=== PATIENT | female | born 1965 | race African-American/Black ===

== ENCOUNTER 2025-02-03 15:27 | Emergency (ER) | payer MEDICARE, SELFPAY ==
--- OUTSIDE RECORDS SUMMARY | 2024-02-05 04:15 | XMS_ITS ---
Author Organization [facility] Address [address] [place] [address] [place] [address] Care Team Providers Care One Piece Expansion Maker Hand Name Role Phone FELIPE RUFF, TASH Primary Care Provider Timmy Reyes Unavailable [phone] ALLERGIES Allergen (clinical drug ingredient) Drug/Non Drug Allergy documented on EMR Reaction Allergy Type Onset Date Status Information temporarily unavailable Latex rash Allergy Active Information temporarily unavailable Tramadol nausea and vomiting Drug Allergy Active REASON FOR VISIT Right > Left Low Back Pain, Bilateral Lower Extremity Pain MEDICATIONS Medication SIG (Take, Route, Frequency, Duration) Notes Start Date End Date Status Pregabalin 75 MG TAKE 1 CAPSULE BY MOUTH TWICE DAILY Oral for 90 Active Vitamin D (Ergocalciferol) 1.25 MG (73976 UT) TAKE 1 CAPSULE BY MOUTH ONCE A WEEK Oral for 84 Active Fluticasone Propionate 50 MCG/ACT Nasal for 90 Active FLUoxetine HCl 10 MG Oral for 90 Active Xanax 0.25 MG 1-2 tablets Orally 3 0 minutes prior to injection 01/31/2024 Active Allergy Relief 180 MG TAKE 1 TABLET BY M OUTH ONCE DAILY NEEDED FOR ALLERGIES Oral for 90 Active Albuterol Sulfate HFA 108 (9 0 Base) MCG/ACT Inhalation for 50 Active Diclofenac Sodium 75 MG Oral for 45 Active Ozempic (2 MG/DOSE) 8 MG/3ML INJECT 2MG UNDER THE SKIN DIRECTED ONCE A WEEK. Subcutaneous for 28 Active Gabapentin 600 MG 1 capsule Oral Once a day Active Methocarbamol 750 MG TAKE 1 TABLET BY MO UTH THREE TIMES DAILY NEEDED FOR PAIN Oral for 20 Active Rosuvastatin Calcium 20 MG Oral for 90 Active Metoprolol Tartrate 50 MG TAKE 1 TABLET BY MOUTH TWICE DAILY Oral for 90 Active Losartan Potassium 25 MG Oral for 90 Active glipiZIDE 5 MG 1 tablet 30 minutes before breakfast Oral Once a day Active Atorvastatin Calcium 10 MG 1 tablet Oral ly Once a day for 30 day(s) Active Voltaren 1 % apply 4 grams to painful joint(s) Transdermal 4x/day as needed for pain for 30 days Active Medrol 4 MG as directed Orally 07/12/2021 Active traMADol HCl 100 MG Oral for 10 Active Metoprolol Succinate 25 MG 1 capsule Orally BID Active amLODIPine Besylate 5 MG 1 tablet Orally Once a day for 30 day(s) Active Xanax 0.5 MG 1 tablet Orally Twic e a day Active hydroCHLOROthiazide 50 MG 1 tablet in th e morning Orally Once a day for 30 day(s) Active VITAL SIGNS Blood pressure systolic 143 mm Hg 02/05/20 24 Blood pressure diastolic 91 mm Hg 024 Heart Rate 67 /min 02/05/2024 Respiratory Rate 18 /min 02/05/2024 Height 5 ft 5 in in 02/05/2024 Weight 315 lbs 02/05/2024 BMI 52.41 kg/m2 02/05/2024 Oximetry 99 % 02/05/2024 Post procedure bslkgw=189/91 ,60,18,99%. Discharged home per ambulatory, in no acute distress. Encounters Encounter Location Date Provider Diagnosis [address] [address] 02/05/2024 Timmy Salgado Spondylosis without myelopathy or radiculopathy, lumbar region M47.816 and Spondylosis without myelopathy or radiculopathy, lumbosacral region M47.817 ASSESSMENTS Encounter Date Diagnosis Assessment Notes Treatment Notes Treatment Clinical Notes Section Notes 02/05/2024 Spondylosis without myelopathy or radiculopathy, lumbar region (ICD-10 - M47.816) 02/05/2024 Spondylosis without myelopathy or radiculopathy, lumbosacral region (ICD-10 - M47.817) 02/05/2024 Other The patient voiced understanding of the treatment plan and all questions were addressed. Obtain informed consent: Bilateral Lumbar 3-5 Radiofrequency Ablation under fluoroscopy. Monitor pulse, blood pressure and SaO2 before, after and as needed during procedure. Verify if the patient is currently taking blood thinner. Verify patients is not currently on antibiotics for infection. Patient may drive home. CARE PLAN: Knowledge deficit: Will verbalize understanding of the proposed procedure, including risk of electrical burn, complications and benefits of the procedure? Will the patient exhibit understanding of the discharge instructions? Safety: The potential for injury related to surgery was assessed; Fire risk score determined, test completed if applicable. Risk for injury related to wrong patient, site, procedure. TIME OUT for safety of patient and includes patient name, , procedure site, side, level, allergies, blood thinners, antibiotics, surgical counts, consents correct and signed etc. Risk for infection: Implements aseptic technique, protects from cross-contaminatio n, performs skin preparations. Pain/Discomfort: Patient verbalizes acceptable level of pain relief prior to discharge and the ability to engage in desired activity. I HAVE REVIEWED THE PATIENT'S MEDICATION LIST AND HAVE RECONCILED THE ABOVE MEDICATIONS. PATIENT GOALS AND SAFETY CONCERNS HAVE BEEN ADDRESSED. DARRYN MOSELEY PLAN OF TREATMENT Treatment Notes Assessment Notes Other The patient voiced understanding of the treatment plan and all questions were addressed. Obtain informed consent: Bilateral Lumbar 3-5 Radiofrequency Ablation under fluoroscopy. Monitor pulse, blood pressure and SaO2 before, after and as needed during procedure. Verify if the patient is currently taking blood thinner. Verify patients is not currently on antibiotics for infection. Patient may drive home. CARE PLAN: Knowledge deficit: Will verbalize understanding of the proposed procedure, including risk of electrical burn, complications and benefits of the procedure? Will the patient exhibit understanding of the discharge instructions? Safety: The potential for injury related to surgery was assessed; Fire risk score determined, test completed if applicable. Risk for injury related to wrong patient, site, procedure. TIME OUT for safety of patient and includes patient name, , procedure site, side, level, allergies, blood thinners, antibiotics, surgical counts, consents correct and signed etc. Risk for infection: Implements aseptic technique, protects from cross-contamination, performs skin preparations. Pain/Discomfort: Patient verbalizes acceptable level of pain relief prior to discharge and the ability to engage in desired activity. I HAVE REVIEWED THE PATIENT'S MEDICATION LIST AND HAVE RECONCILED THE ABOVE MEDICATIONS. PATIENT GOALS AND SAFETY CONCERNS HAVE BEEN ADDRESSED. DARRYN MOSELEY Next Appt Details Follow Up: FU scheduled on , Reason: Procedure Notes * Category Sub-Category Detail Notes Radiofrequency Ablation Procedure: L3-5 Med ial Branch Nerve Radiofrequency Ablation Location: Bilateral Anesthesia: Local without IV sed ation Operative Technique: After the risks, be nefits, alternative treatment options and potential complications related to the procedure were discussed, informed consent was obtained. The specific risks of this procedure including pain, bleeding, infection, nerve damage, spinal cord injury, paralysis, total spinal anesthesia resulting in cardiopulmonary arrest/, respiratory distress requiring intubation, neuritis after radiofrequency ablation, hyperglycemia, insomnia, hair loss, muscle atrophy, skin depigmentation, weight gain, fluid retention, adrenal suppression, osteoporosis resulting in fractures, avascular necrosis of the hip, cataracts, bleeding gastric ulcer, worsening pain and failure to relieve pain were discussed and the patient is agreeable to proceeding at this time. The patient was placed in the prone position on the fluoroscopy table. Standard ASA monitors were applied. The back was prepped and draped in the usual sterile fashion with chlorhexidine 2%/IPA 70%. The bilateral L4 pedicles were identified with x-ray and the c-arm was obliqued 45 degrees to the selected side superimposing the L4 pedicle on the L4 vertebral body. The skin and subcutaneous structures above it were anesthetized with 3 mL of 1% Preservative-Free lidocaine through a 25 g 1.5-inch needle. A 20-gauge coude 15 cm radiofrequency needle with a 10 mm active tip was inserted in a gun barrel fashion to the junction of the superior articular process and transverse process of L4 until periosteum was contacted. The bilateral L3 medial branch nerves were stimulated with negative motor stimulation at 2 Hz up to 3.0 V. A solution of 10 mg of Preservative-Free Dexamethasone (10 mg/mL), plus 5 mL of 1% Preservative-Free lidocaine was mixed. After negative aspiration for blood, air or CSF, 1 mL of this solution was injected. The bilateral L3 medial branch nerves were lesioned at 80 degrees Celsius for 90 seconds. The exact same procedure was repeated at the bilateral L4 medial branch nerves (at the junction of the superior articular process and transverse process of L5) and the bilateral L5 dorsal rami (at the junction of the superior articular process of S1 and the sacral ala) with no motor stimulation into the lower extremity at 2 Hz up to 3.0 V. The needles were then removed, the skin was cleaned and band-aids were placed over the puncture sites. The patient tolerated the procedure well, was able to ambulate without difficulty and was monitored for 20 minutes. The patient remained hemodynamically and neurologically stable. No complications were observed. Postoperative instructions were reviewed with the patient. The patient was discharged home in good condition with a driver engineer. X- ray time: 57 seconds Safe Surgery Practices First Critical Point Maria ent identified by verbal and ID band. Surgical site marked. Assessement of allergies, airway and aspiration risk. Assessed if patient is on anticoagulant. Operataive Consent signed. Patient has discussed procedure with physician Carleen Ochoa 02/05/2024 9:27:04 AM > Second Critical Point TIME OUT: Confirm patient identity, procedure and surgical incision site. Patient in proper position and safety straps placed appropriately. ASA score: 2 Fire Risk Score: 2 . Alcohol based prep solution had significant time for fumes to dissipate. Confirm surgical steam table attendant and roles. Anticipated critical events. Essential imaging displayed as appropriate. Fluoroscopy precautions taken if applicable. Equipment and supplies in room. Verify patient is not if applicable Carleen Ochoa 02/05/2024 9:27:04 AM > Third Critical Point SAFE SURGERY PRACTI GLENDY-POST: Complete count of surgical instruments and accessories. Identify samaniego patient concerns for recovery and management of the patient. Patient remains free from injury realted to surgery. The patient tolerated the procedure well and there were no complications. The patient was taken to the recovery area. The patient remained in stable condition with no apparent complications. Vital signs stable. Injection/procedure/surgical site clean, dry and intact. Post procedure discharge instructions were give to the patient and a follow up appointment was confirmed. The patient was discharged with information on how to reach the clinic at anytime for questions or concerns. Patient discharged ambulatory. Patient denies complaints or questions Carleen Ochoa 02/05/2024 10:17:04 AM > Progress Notes * Examination Category Sub-Category Detail Notes Category Not es Examination/ Pre-Anesthesia Assessment General: The patient is alert and oriented X 3 in no acute distress. The patient is sitting comfortably in her chair despite reporting she is currently experiencing severe pain HEENT: Normocephalic, atrau matic. PERRL. The oropharynx is clear Neck: There is full range of motion of the cervical spine. There is no tenderness to palpation about the cervical spine. Extension and lateral rotation of the cervical spine causes mild discomfort. Spurling sign is negative bilaterally Heart: Regular rate and rhy thm Chest: Clear to auscultatio n bilaterally Abdomen: Soft and benign Musculoskeletal and Extremities: There i s tenderness to palpation over the bilateral L2-3 through L5-S1 facet joints. Extension and lateral rotation of the lumbar spine reproduces the patient's typical axial low back pain. Guille's, [place]'s and [place]ens[place]'s are negative bilaterally. There is tenderness palpation over the bilateral sacroiliac joints and greater trochanters. There is tenderness to palpation over the bilateral lumbar paraspinal muscles and palpable myofascial trigger points throughout. There is diffuse tenderness to palpation about the bilateral knee joints. There is crepitus with range of motion testing Neurological: There is positive st raight leg raising bilaterally for the reproduction of the pain down the L4 and L5 dermatomes right greater than left. Spurling sign is negative bilaterally. There are no focal strength deficits in the bilateral upper and lower extremities. The patellar reflexes are 1+/4 bilaterally and symmetric. There is a negative Tinel's at the bilateral carpal tunnel. There are no deficits in light touch perception over the distribution of the median nerve in the bilateral hands Skin: Clean, dry and intac t Psychiatric: Mood and affect are normal History and Physical Notes * HPI (History of Present Illness) Category Sub-Category Detail Notes Category Not es Pain Management Radiographic Imaging Lumbar spin e MRI without contrast. 07/28/2020. L1-2: Bilateral facet arthropathy causing mild bilateral neuroforaminal stenosis. L2-3: Bilateral facet arthropathy causing mild bilateral neuroforaminal stenosis. L3-4: A broad-based disc bulge, L3 on L4 anterolisthesis and bilateral facet arthropathy causing mild central canal stenosis, mild to moderate right and mild left neuroforaminal stenosis. L4-L5: A broad-based disc bulge with right paracentral disc extrusion. Disc bulge/extrusion, anterolisthesis L4 on L5 and bilateral facet arthropathy causing mild to moderate central canal stenosis, moderate bilateral neuroforaminal stenosis. L5-S1: A broad-based disc bulge and bilateral facet arthropathy. Moderate to severe right and moderate left neuroforaminal stenosis. The disc bulge is touching the exiting right L5 nerve root within the neural foramen Assessment and Follow-up: Follow-up Plan documen manjula:: Yes MIPS Quality 2020: MIPS Documented:: Compliant
--- OUTSIDE RECORDS SUMMARY | 2024-02-06 03:14 | XMS_ITS ---
Author Organization [facility] Address [address] [place] [address] [place] [address] Care Team Providers Care Ultrasonographer Name Role Phone FELIPE RUFF, TASH Primary Care Provider UnavailTimmy Castrejon Unavailable [phone] REASON FOR VISIT Post Procedure Follow Up Call Encounters Encounter Location Date Provider Diagnosis [facility] [address] [place] [address] 02/06/2024 Timmy Salgado PLAN OF TREATMENT No Information
--- OUTSIDE RECORDS SUMMARY | 2024-02-28 08:15 | XMS_ITS ---
Author Organization [facility] Address [address] [place] [address] [place] [address] Care Team Providers Care Storekeeper Engineering Name Role Phone FELIPE RUFF, TASH Primary Care Provider Timmy Reyes Unavailable [phone] ALLERGIES Allergen (clinical drug ingredient) Drug/Non Drug Allergy documented on EMR Reaction Allergy Type Onset Date Status Information temporarily unavailable Latex rash Allergy Active Information temporarily unavailable Tramadol nausea and vomiting Drug Allergy Active REASON FOR VISIT Follow Up, Right > Left Low Back Pain, Right = Left Lower Extremity Pain, Left > Right Knee Pain, Right > left neck pain with radiation into the upper extremities MEDICATIONS Medication SIG (Take, Route, Frequency, Duration) Notes Start Date End Date Status traMADol HCl 100 MG Oral for 10 Active Metoprolol Tartrate 50 MG TAKE 1 TABLET BY MOUTH TWICE DAILY Oral for 90 Active Losartan Potassium 25 MG Oral for 90 Active Methocarbamol 750 MG TAKE 1 TABLET BY [facility] THREE TIMES DAILY NEEDED FOR PAIN Oral for 20 Active Rosuvastatin Calcium 20 MG Oral for 90 Active Metoprolol Succinate 25 MG 1 capsule Orally BID Active Atorvastatin Calcium 10 MG 1 tablet Oral ly Once a day for 30 day(s) Active hydroCHLOROthiazide 50 MG 1 tablet in th e morning Orally Once a day for 30 day(s) Active Voltaren 1 % apply 4 grams to painful joint(s) Transdermal 4x/day as needed for pain for 30 days Active Medrol 4 MG as directed Orally 07/12/2021 Active Xanax 0.5 MG 1 tablet Orally Twic e a day Active FLUoxetine HCl 10 MG Oral for 90 Active amLODIPine Besylate 5 MG 1 tablet Orally Once a day for 30 day(s) Active Xanax 0.25 MG 1-2 tablets Orally 3 0 minutes prior to injection 01/31/2024 Active Fluticasone Propionate 50 MCG/ACT Nasal for 90 Active Allergy Relief 180 MG TAKE 1 TABLET BY M OUTH ONCE DAILY NEEDED FOR ALLERGIES Oral for 90 Active Diclofenac Sodium 75 MG Oral for 45 Active Pregabalin 75 MG TAKE 1 CAPSULE BY MOUTH TWICE DAILY Oral for 90 Active Albuterol Sulfate HFA 108 (9 0 Base) MCG/ACT Inhalation for 50 Active Vitamin D (Ergocalciferol) 1.25 MG (30393 UT) TAKE 1 CAPSULE BY MOUTH ONCE A WEEK Oral for 84 Active Gabapentin 600 MG 1 capsule Oral Once a day Active glipiZIDE 5 MG 1 tablet 30 minutes before breakfast Oral Once a day Active Ozempic (2 MG/DOSE) 8 MG/3ML INJECT 2MG UNDER THE SKIN DIRECTED ONCE A WEEK. Subcutaneous for 28 Active SOCIAL HISTORY Tobacco Use: Social History Observation Description Date Details (start date - stop date) Current Smoker NA - NA Sex Assigned At : Social History Observation Description Sex Assigned At Unknown Tobacco Use/Smoking Question Answer Notes Are you a current smoker How often do you smoke cigarettes? every day Are you interested in quitting? 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 She has four children. She smokes cigarettes. She denies alcohol or illicit drug abuse. PROBLEMS Problem Type ICD Code Onset Dates Problem Status W/U Status Risk SNOMED Code Notes Problem Radiculopathy, cervicothoracic region (M54.13) Active confirmed Information temporarily unavailable VITAL SIGNS Blood pressure systolic 155 mm Hg 02/28/20 Blood pressure diastolic 102 mm Hg 024 Heart Rate 63 /min 02/28/2024 Respiratory Rate 18 /min 02/28/2024 Height 5 ft 5 in in 02/28/2024 Weight 315 lbs 02/28/2024 BMI 52.41 kg/m2 02/28/2024 Encounters Encounter Location Date Provider Diagnosis [facility] [address] [facility] [place] [address] 02/28/2024 Timmy Salgado Spondylosis without myelopathy or radiculopathy, lumbar region M47.816 ; Bilateral primary osteoarthritis of knee M17.0 ; Radiculopathy, lumbar region M54.16 ; Spondylolisthesis, lumbar region M43.16 ; 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 The risks of this procedure including pain, bleeding, infection, nerve damage, insomnia, hyperglycemia, hair loss, muscle atrophy, skin depigmentation, weight gain, fluid retention, adrenal suppression, immunosuppression , osteoporosis resulting in fractures, avascular necrosis of the hip, cataracts, bleeding gastric ulcer, worsening pain and failure to relieve pain were discussed and the patient is agreeable to proceeding at this time. 02/28/2024 Radiculopathy, lumbar region (ICD-10 - M54.16) 02/28/2024 Spondylolisthesis, lumbar region (ICD-10 - M43.16) 02/28/2024 Intervertebral disc stenosis of neural canal of lumbar region (ICD-10 - M99.53) 02/28/2024 Osseous stenosis of neural canal of lumbar region (ICD-10 - M99.33) 02/28/2024 Spondylosis without myelopathy or radiculopathy, lumbosacral region (ICD-10 - M47.817) 02/28/2024 Fear of injections and transfusions (ICD-10 - F40.231) 02/28/2024 Radiculopathy, cervical region (ICD-10 - M54.12) The patient was instructed to notify the office after imaging has been obtained so it can be reviewed and treatment plan formulated moving forward. Patient verbalized understanding and agrees with current plan. 02/28/2024 Radiculopathy, cervicothoracic region (ICD-10 - M54.13) 02/28/2024 Other The above-named patient was evaluated in conjunction with Dr. Salgado. I have discussed and reviewed all of the pertinent history, physical examination findings and diagnostic imaging results with him. As a result of our discussion, Dr. Salgado has determined the above assessment and directed the treatment plan. This note was dictated using voice recognition software and therefore inadvertent errors may have occurred. This note was dictated by LIZZY Grullon. Total Time Spent with Patient and Medical Decision Makin minutes PLAN OF TREATMENT Treatment Notes Assessment Notes Bilateral primary osteoarthritis of knee Schedule a bilateral knee joint steroid injection. The risks of this procedure including pain, bleeding, infection, nerve damage, insomnia, hyperglycemia, hair loss, muscle atrophy, skin depigmentation, weight gain, fluid retention, adrenal suppression, immunosuppression, osteoporosis resulting in fractures, avascular necrosis of the hip, cataracts, bleeding gastric ulcer, worsening pain and failure to relieve pain were discussed and the patient is agreeable to proceeding at this time. Radiculopathy, cervical region The patie nt was instructed to notify the office after imaging has been obtained so it can be reviewed and treatment plan formulated moving forward. Patient verbalized understanding and agrees with current plan. Other The above-named patient was evaluated in conjunction with Dr. Salgado. I have discussed and reviewed all of the pertinent history, physical examination findings and diagnostic imaging results with him. As a result of our discussion, Dr. Salgado has determined the above assessment and directed the treatment plan. This note was dictated using voice recognition software and therefore inadvertent errors may have occurred. This note was dictated by LIZZY Grullon. Total Time Spent with Patient and Medical Decision Makin minutes Pending Test Test Name Order Date MRI : Cervical Spine without Contrast ([id number]) 02/28/2024 xray cervical spine 02/28/2024 Next Appt Details Follow Up: bilateral knee jean int steroid injection, Reason: Progress Notes * Examination Category Sub-Category Detail [...] patient's typical axial low back pain. Guille's, [place]'s and Gaenslen's are negative bilaterally. There is [...]
--- OUTSIDE RECORDS SUMMARY | 2024-03-04 06:15 | XMS_ITS ---
Author Organization [facility] Address [address] [place] [address] DAV[place] Cortez [address] Care Team Providers Care Counter Clerk [employer] Name Role Phone FELIPE RUFF, TASH Primary Care Provider Timmy Reyes Unavailable [phone] ALLERGIES Allergen (clinical drug ingredient) Drug/Non Drug Allergy documented on EMR Reaction Allergy Type Onset Date Status Information temporarily unavailable Latex rash Allergy Active Information temporarily unavailable Tramadol nausea and vomiting Drug Allergy Active REASON FOR VISIT Left > Right Knee Pain MEDICATIONS Medication SIG (Take, Route, Frequency, Duration) Notes Start Date End Date Status Metoprolol Succinate 25 MG 1 capsule Orally BID Active amLODIPine Besylate 5 MG 1 tablet Orally Once a day for 30 day(s) Active Xanax 0.5 MG 1 tablet Orally Twic e a day Active hydroCHLOROthiazide 50 MG 1 tablet in th e morning Orally Once a day for 30 day(s) Active Atorvastatin Calcium 10 MG 1 tablet Oral ly Once a day for 30 day(s) Active FLUoxetine HCl 10 MG Oral for 90 Active Xanax 0.25 MG 1-2 tablets Orally 3 0 minutes prior to injection 01/31/2024 Active Pregabalin 75 MG TAKE 1 CAPSULE BY MOUTH TWICE DAILY Oral for 90 Active Vitamin D (Ergocalciferol) 1.25 MG (48309 UT) TAKE 1 CAPSULE BY MOUTH ONCE A WEEK Oral for 84 Active Fluticasone Propionate 50 MCG/ACT Nasal for 90 Active Ozempic (2 MG/DOSE) 8 MG/3ML INJECT 2MG UNDER THE SKIN DIRECTED ONCE A WEEK. Subcutaneous for 28 Active Diclofenac Sodium 75 MG Oral for 45 Active Gabapentin 600 MG 1 capsule Oral Once a day Active Allergy Relief 180 MG TAKE 1 TABLET BY M OUTH ONCE DAILY NEEDED FOR ALLERGIES Oral for 90 Active Albuterol Sulfate HFA 108 (9 0 Base) MCG/ACT Inhalation for 50 Active Metoprolol Tartrate 50 MG TAKE 1 TABLET BY MOUTH TWICE DAILY Oral for 90 Active Losartan Potassium 25 MG Oral for 90 Active glipiZIDE 5 MG 1 tablet 30 minutes before breakfast Oral Once a day Active Methocarbamol 750 MG TAKE 1 TABLET BY [facility] THREE TIMES DAILY NEEDED FOR PAIN Oral for 20 Active Rosuvastatin Calcium 20 MG Oral for 90 Active Medrol 4 MG as directed Orally 07/12/2021 Active traMADol HCl 100 MG Oral for 10 Active Voltaren 1 % apply 4 grams to painful joint(s) Transdermal 4x/day as needed for pain for 30 days Active VITAL SIGNS Blood pressure systolic 151 mm Hg 03/04/20 Blood pressure diastolic 82 mm Hg 024 Heart Rate 83 /min 03/04/2024 Respiratory Rate 18 /min 03/04/2024 Height 5 ft 5 in in 03/04/2024 Weight 315 lbs 03/04/2024 BMI 52.41 kg/m2 03/04/2024 Encounters Encounter Location Date Provider Diagnosis [facility] [address] [place] [id number] 03/04/2024 Timmy Salgado Bilateral primary osteoarthritis of knee M17.0 ASSESSMENTS Encounter Date Diagnosis Assessment Notes Treatment Notes Treatment Clinical Notes Section Notes 03/04/2024 Bilateral primary osteoarthritis of knee (ICD-10 - M17.0) PLAN OF TREATMENT Next Appt Details Follow Up: Has f/u 03/19/24, Reason: Procedure Notes * Category Sub-Category Detail Notes Knee Joint Injection Under Fluoroscopy Location: Bilateral Anesthesia: Local without IV sed ation Operative Technique: After the risks, be nefits, alternative treatments and potential complications related to the procedure were discussed and informed consent was obtained, the patient was placed in the supine position on the fluoroscopy table. Standard ASA monitors were applied. The anterior surface of the left and right knees were prepped and draped in the usual sterile fashion with chlorhexidine 2%/IPA 70%. The tibial and femoral surfaces of the knee joints were identified under live AP x-ray guidance. A 25-gauge 1.5 inch needle was inserted in a gun barrel fashion under fluoroscopic guidance into the left knee joint followed by the right knee joint. The subcutaneous structures were anesthetized with 3 mL of 1% lidocaine during needle placement. The needle tip was placed into the joint. After negative aspiration, 2 mL of Omnipaque 240 contrast dye was injected showing good spread within the joint. There were no filling defects. Contrast spread normally without obstruction. A solution of 10 mg of Preservative-Free Dexamethasone (10 mg/mL), plus 7 mL of 0.25% PF bupivacaine was mixed and after negative aspiration 4 mL of this solution was injected into the left knee joint followed by the right knee joint. The needles were removed, the skin was cleaned and band-aids were placed over the puncture sites. The patient tolerated the procedure well, was able to ambulate without new difficulty and was monitored for 20 minutes. The patient remained hemodynamically and neurologically stable. No apparent complications were observed. Post-operative instructions were reviewed with the patient. The patient was then discharged home in good condition with a tilt tray driver. X-ray time: 18 seconds Progress Notes * Examination Category Sub-Category Detail [...] patient's typical axial low back pain. Guille's, Lincoln's and Gaenslen's are negative bilaterally. There is [...]
--- OUTSIDE RECORDS SUMMARY | 2024-03-19 08:30 | XMS_ITS ---
Author Organization [facility] Address [address] [place] [address] [place] [address] Care Team Providers Care External Grinder [employer] Name Role Phone FELIPE RUFF, TASH Primary Care Provider Unavaila Timmy Leary Unavailable [phone] ALLERGIES Allergen (clinical drug ingredient) Drug/Non Drug Allergy documented on EMR Reaction Allergy Type Onset Date Status Information temporarily unavailable Latex rash Allergy Active Information temporarily unavailable Tramadol nausea and vomiting Drug Allergy Active REASON FOR VISIT FOLLOW UP MEDICATIONS Medication SIG (Take, Route, Frequency, Duration) Notes Start Date End Date Status Albuterol Sulfate HFA 108 (9 0 Base) MCG/ACT Inhalation for 50 Active Vitamin D (Ergocalciferol) 1.25 MG (51619 UT) TAKE 1 CAPSULE BY MOUTH ONCE A WEEK Oral for 84 Active Pregabalin 75 MG TAKE 1 CAPSULE BY MOUTH TWICE DAILY Oral for 90 Active Diclofenac Sodium 75 MG Oral for 45 Active Fluticasone Propionate 50 MCG/ACT Nasal for 90 Active Allergy Relief 180 MG TAKE 1 TABLET BY M OUTH ONCE DAILY NEEDED FOR ALLERGIES Oral for 90 Active Gabapentin 600 MG 1 capsule Oral Once a day Active Ozempic (2 MG/DOSE) 8 MG/3ML INJECT 2MG UNDER THE SKIN DIRECTED ONCE A WEEK. Subcutaneous for 28 Active glipiZIDE 5 MG 1 tablet 30 minutes before breakfast Oral Once a day Active Losartan Potassium 25 MG Oral for 90 Active Rosuvastatin Calcium 20 MG Oral for 90 Active Methocarbamol 750 MG TAKE 1 TABLET BY MO UTH THREE TIMES DAILY NEEDED FOR PAIN Oral for 20 Active traMADol HCl 100 MG Oral for 10 Active Medrol 4 MG as directed Orally 07/12/2021 Active Metoprolol Tartrate 50 MG TAKE 1 TABLET BY MOUTH TWICE DAILY Oral for 90 Active Voltaren 1 % apply 4 grams to painful joint(s) Transdermal 4x/day as needed for pain for 30 days Active Atorvastatin Calcium 10 MG 1 tablet Oral ly Once a day for 30 day(s) Active Metoprolol Succinate 25 MG 1 capsule Orally BID Active hydroCHLOROthiazide 50 MG 1 tablet in th e morning Orally Once a day for 30 day(s) Active Xanax 0.5 MG 1 tablet Orally Twic e a day Active amLODIPine Besylate 5 MG 1 tablet Orally Once a day for 30 day(s) Active Xanax 0.25 MG 1-2 tablets Orally 3 0 minutes prior to injection 01/31/2024 Active FLUoxetine HCl 10 MG Oral for 90 Active SOCIAL HISTORY Tobacco Use: Social History [...] t Section Notes: 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 She smokes cigarettes. She denies alcohol or illicit drug abuse. 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 Guille's, [place]'s and Gaenslen's are negative bilaterally. There is [...]
--- NOTE | ~2025-02-03 | XR_ITS ---
EXAMINATION: XR chest 2V, 02/03/2025 15:50 CDT HISTORY: chest pressure COMPARISON: No comparisons available. Technique: 2 views obtained. Findings: Minimal basilar infiltrates No pneumothorax. Heart is normal size. Mediastinal and hilar contours are within normal limits. Bony thorax no acute abnormality. Impression: Early bilateral pneumonia Reviewed, dictated and finalized at location P. Impression: Early bilateral pneumonia
--- NOTE | 2025-02-03 15:29 | ECG_ITS ---
Test Date: 2025-02-03 15:37:01 Measurements Intervals [place] Rate: 59 P: -4 OR: 152 QRS: 7 QRSD: 89 T: -5 QT: 434 QTc: 431 Interpretive Statements SINUS BRADYCARDIA MINIMAL VOLTAGE CRITERIA FOR LVH, CONSIDER NORMAL VARIANT [MEETS CRITERIA IN ONE OF: R(aVL), S(V1), R(V5), R(V5/V6)+S(V1)] Poor R wave progression No previous ECG available for comparison Electronically Signed On 02-03-2025 16:58:25 CDT by Eric Mauricio M.D.
[2025-02-03 15:30] VITALS: BP 111/69; PULSE 61; RESP 18; TEMP 36.9; O2SAT 97
[2025-02-03 15:46] LABS: Hematocrit 40.8 % (37.0-47.0); Hemoglobin 13.8 g/dL (12.0-15.0); Immature Granulocyte Percent A 0.4 % (0-0.5); Lymphocytes Absolute Auto 3.42 K/mm3 (0.9-3.2); Mean Corpuscular HGB Conc 33.8 g/dl (32-36); Mean Corpuscular Hemoglobin 32.7 pg (26-34); Mean Corpuscular Volume 96.7 fl (80-100); Nucleated Red Blood Cells Absolute Auto 0.000 K/mm3 (0.0-0.012); Nucleated Red Blood Cells Perc 0.0 % (0.0-0.2); Platelet Count Result 267 k/mm3 (150-375); Red Blood Count 4.22 M/mm3 (4.2-5.4); White Blood Count 11.2 K/mm3 (4.5-10.0)
[2025-02-03 15:55] LABS: INR 1.0; Partial Thromboplastin Time 28.0 Seconds (22.3-36.8); Prothrombin Time 13.4 Seconds (11.1-14.7)
[2025-02-03 15:56] LABS: Alanine Aminotransferase 27 U/L (6-35); Albumin Level 4.4 g/dL (3.5-5.1); Alkaline Phosphatase 78 U/L (38-126); Anion Gap 5 mmol/L (4-12); Aspartate Amino Transferase 31 U/L (14-36); Bilirubin,Total 0.4 mg/dL (0.2-1.3); Blood Urea Nitrogen 13 mg/dL (7-17); Calcium 8.9 mg/dL (8.4-10.2); Carbon Dioxide 28 mmol/L (22-30); Chloride 106 mmol/L (98-107); Estimated CRCL calculation 101 ml/min; Estimated Glomerular Filt Rate > 60; Glucose 84 mg/dL (65-110); Lipase 55 U/L (23-300); Potassium 3.7 mmol/L (3.4-5.0); Sodium 139 mmol/L (137-145); Total Protein 7.4 g/dL (6.3-8.2)
[2025-02-03 16:07] LABS: Troponin I < 0.012 ng/mL (0.000-0.034)
[2025-02-03 18:19] VITALS: O2SAT 99
[2025-02-03 18:21] VITALS: BP 188/82; PULSE 63; PULSE 65; RESP 19; O2SAT 100
--- NOTE | 2025-02-03 18:42 | ED_ITS ---
HPI - Chest Pain General Chief Complaint: Chest Pain Stated Complaint: weakness, chest pressure Time Seen by Provider: 02/03/25 18:13 History of Present Illness HPI narrative: This is a 59-year-old female with history of hypertension, neuropathy, GERD who presents the ED for chest pain a cough, shortness of breath. Patient states that she woke up this morning a cough productive of brown sputum. She also had some shortness of breath. She did not try using the inhaler that she has at home. Daughter at bedside states the patient does have history of COPD but patient denies this. Patient is a current smoker he was cut back to 6 cigarettes per day. Related Data Allergies Allergy/AdvReac Type Severity Reaction Status Date / Time No Known Allergies Allergy Verified 02/03/25 18:29 Review of Systems 2 Review of Systems: Gen.: Denies fevers or chills Eyes: Denies eye pain or visual change ENT: Denies congestion Respiratory: As per HPI CV: As per HPI GI: Denies abdominal pain nausea, emesis or diarrhea denies burning, urgency, frequency or hematuria Musculoskeletal: Denies back pain or muscle pain Neuro: Denies numbness, tingling, weakness or focal weakness Skin: Denies rash Except as documented, all other systems reviewed and negative Exam 2 Narrative: APPEARANCE: No acute distress, nontoxic, resting in bed EYES: EOMI HEENT: Normocephalic, atraumatic, OMM RESPIRATORY: No respiratory distress. Diminished breath sounds due to body habitus, Clear to auscultation bilaterally with no rhonchi wheezing or rales. CARDIOVASCULAR: Regular rate and rhythm without murmurs rubs or gallops. ABDOMINAL: Soft, nontender, nondistended, no rebound or guarding MUSCULOSKELETAl: Moves all extremities. No clubbing, cyanosis or edema. NEURO: Awake and alert. Following commands, speech normal, no focal deficits SKIN:: Warm, dry. No rashes lesions or abrasions PSYCHIATRIC: Normal affect/mood, Course Vital Signs Vital signs: Vital Signs Temperature 98.4 F 02/03/25 15:30 Pulse Rate 61 02/03/25 15:30 Respiratory Rate 18 02/03/25 15:30 Blood Pressure 111/69 02/03/25 15:30 Pulse Oximetry 97 02/03/25 15:30 Oxygen Delivery Room Air 02/03/25 15:30 Temperature 98.4 F 02/03/25 15:30 Pulse Rate 65 02/03/25 18:21 Respiratory Rate 19 02/03/25 18:21 Blood Pressure 188/82 H 02/03/25 18:21 Pulse Oximetry 100 02/03/25 18:21 Oxygen Delivery Room Air 02/03/25 18:19 MDM - Chest Pain MDM Narrative Medical decision making narrative: 59-year-old female presenting for chest pain, shortness breath, productive cough. On initial evaluation, patient was in no acute distress, afebrile, hemodynamically stable. She did have diminished breath sounds throughout but may be due to body habitus. She had a mild leukocytosis at 11.2. CMP without significant abnormalities. COVID/flu/RSV negative. Chest x-ray showed early bilateral pneumonia which is likely the source of her chest pain. Patient is a current everyday smoker she likely has underlying COPD as well. She will be given Augmentin and doxycycline prednisone. She was advised follow-up with her PCP in the next few days for re-evaluation. Patient and family were agreeable to this plan. Given strict return precautions. Differential Diagnosis Differential diagnosis: Likely stable angina, unstable angina pectoris, atypical chest pain, costochondritis and other (Pneumonia, COPD exacerbation) Medical Records Data Attestation: I reviewed the patient's medical records. Lab Data Attestation: I reviewed the patient's lab results. 02/03/25 15:35 02/03/25 15:35 Labs: Lab Results 02/03/25 02/03/25 02/03/25 Range/Units 15:34 15:35 18:27 WBC 11.2 H (4.5-10.0) K/mm3 RBC 4.22 (4.2-5.4) M/mm3 Hgb 13.8 (12.0-15.0) g/dL Hct 40.8 (37.0-47.0) % MCV 96.7 (80-100) fl MCH 32.7 (26-34) pg MCHC 33.8 (32-36) g/dl RDW 15.2 H (11.5-14.5) % Plt Count 267 (150-375) k/mm3 MPV 10.5 H (7.4-10.4) fl Immature Gran % (Auto) 0.4 (0-0.5) % Neut % (Auto) 60.5 (45.5-73.1) % Lymph % (Auto) 30.6 (18.3-44.2) % [place] % (Auto) 6.4 (2.6-8.5) % Eos % (Auto) 1.7 (0-4.4) % Baso % (Auto) 0.4 (0.2-1.2) % Lymph # (Auto) 3.42 H (0.9-3.2) K/mm3 [place] # (Auto) 0.7 H (0.1-0.6) K/mm3 Eos # (Auto) 0.2 (0-0.3) K/mm3 Baso # (Auto) 0.1 (0.0-0.1) K/mm3 Abs Immat Gran (auto) 0.05 H (0.00-0.031) K/mm3 Absolute Neuts (auto) 6.7 (1.3-6.7) K/mm3 Absolute Nucleated RBC 0.000 (0.0-0.012) K/mm3 Nucleated RBC % 0.0 (0.0-0.2) % PT 13.4 (11.1-14.7) Seconds INR 1.0 APTT 28.0 (22.3-36.8) Seconds Sodium 139 (137-145) mmol/L Potassium 3.7 (3.4-5.0) mmol/L Chloride 106 (98-107) mmol/L Carbon Dioxide 28 (22-30) mmol/L Anion Gap 5 (4-12) mmol/L BUN 13 (7-17) mg/dL Creatinine 0.66 L (0.7-1.0) mg/dL Estim Creat Clear Calc 101 ml/min Estimated GFR > 60 (59 - ) Glucose 84 (65-110) mg/dL Calcium 8.9 (8.4-10.2) mg/dL Total Bilirubin 0.4 (0.2-1.3) mg/dL AST 31 (14-36) U/L ALT 27 (6-35) U/L Alkaline Phosphatase 78 (38-126) U/L Troponin I < 0.012 < 0.012 (0.000-0.034) ng/mL NT-Pro-B Natriuret Pep 120 H (19.9-100) pg/mL Total Protein 7.4 (6.3-8.2) g/dL Albumin 4.4 (3.5-5.1) g/dL Lipase 55 (23-300) U/L Influenza A (RT-PCR) Negative (Negative) Influenza B (RT-PCR) Negative (Negative) RSV (RT-PCR) Negative (Negative) SARS-CoV-2 RNA (RT-PCR) Negative (Negative) Imaging Data Attestation: I personally reviewed and interpreted this imaging study as follows: Radiologist's impression: Impressions Chest X-Ray 02/03/25 16:01 Impression: Early bilateral pneumonia ECG Data EKG #1: Attestation: I personally reviewed and interpreted this ECG as follows: ECG completion date: 02/03/25 ECG completion time: 15:37 Prior ECG tracings: available for review Interpretation: Sinus bradycardia rate of 59, normal axis, normal intervals, meets minimal voltage criteria for LVH, no acute ST or T-wave changes Discharge Plan Discharge Clinical Impression: Asthma exacerbation in COPD, Tobacco dependence due to cigarettes Bilateral pneumonia Qualifiers: Pneumonia type: due to unspecified organism Lung location: lower lobe of lung Q ualified Code(s): J18.9 - Pneumonia, unspecified organism Patient Disposition: Home Condition: Stable Instructions: Antibiotic Form, Pneumonia (ED) Additional Instructions: X-ray was consistent with bilateral pneumonia. He will be given prescriptions for Augmentin/doxycycline, take these as prescribed. You are also given a prescription for prednisone. Continue taking breathing treatments at home as previously prescribed. Follow up with her PCP in the next week for re- evaluation. Return to the ED for any new or worsening symptoms. Patient Language: Trinidadian Prescriptions: New amoxicillin-pot clavulanate 875-125 mg tablet 1 tablet PO Q12H Qty: 14 0RF doxycycline hyclate 100 mg capsule 100 mg PO BID Qty: 14 0RF prednisone 20 mg tablet 40 mg PO DAILY 4 Days Qty: 8 0RF Follow-up/Referrals: Natali,Susy Ortiz, WILLOW MACHINE OPERATOR [Primary Care Provider, Unknown]
--- OUTSIDE RECORDS SUMMARY | 2025-02-03 18:52 | XMS_ITS | Patient Health Record ---
Author Organization [facility] Address [address] [place] [address] [place] [address] Care Team Providers Care Triage Nurse Name Role Phone FELIPE RUFF, TASH Primary Care Provider Timmy Reyes Unavailable [phone] ALLERGIES Allergen (clinical drug ingredient) Drug/Non Drug Allergy documented on EMR Reaction Allergy Type Onset Date Status Latex Latex rash Allergy Active tramadol Tramadol nausea and vomiting Drug Allergy Active REASON FOR REFERRAL No Information MEDICATIONS Medication SIG (Take, Route, Frequency, Duration) Notes Start Date End Date Status Xanax 0.5 MG 1 tablet Orally Twic e a day Active glipiZIDE 5 MG 1 tablet 30 minutes before breakfast Oral Once a day Active amLODIPine Besylate 5 MG 1 tablet Orally Once a day for 30 day(s) Active Losartan Potassium 25 MG Oral for 90 Active Xanax 0.25 MG 1-2 tablets Orally 3 0 minutes prior to injection 01/31/2024 Active Metoprolol Tartrate 50 MG TAKE 1 TABLET BY MOUTH TWICE DAILY Oral for 90 Active FLUoxetine HCl 10 MG Oral for 90 Active Fluticasone Propionate 50 MCG/ACT Nasal for 90 Active Voltaren 1 % apply 4 grams to painful joint(s) Transdermal 4x/day as needed for pain for 30 days Active Albuterol Sulfate HFA 108 (9 0 Base) MCG/ACT Inhalation for 50 Active Atorvastatin Calcium 10 MG 1 tablet Oral ly Once a day for 30 day(s) Active Allergy Relief 180 MG TAKE 1 TABLET BY M OUTH ONCE DAILY NEEDED FOR ALLERGIES Oral for 90 Active Metoprolol Succinate 25 MG 1 capsule Orally BID Active Gabapentin 600 MG 1 capsule Oral Once a day Active hydroCHLOROthiazide 50 MG 1 tablet in e morning Orally Once a day for 30 day(s) Active Ozempic (2 MG/DOSE) 8 MG/3ML INJECT 2MG UNDER THE SKIN DIRECTED ONCE A WEEK. Subcutaneous for 28 Active Rosuvastatin Calcium 20 MG Oral for 90 Active Methocarbamol 750 MG TAKE 1 TABLET BY MO UTH THREE TIMES DAILY NEEDED FOR PAIN Oral for 20 Active Vitamin D (Ergocalciferol) 1.25 MG (37787 UT) TAKE 1 CAPSULE BY MOUTH ONCE A WEEK Oral for 84 Active traMADol HCl 100 MG Oral for 10 Active Pregabalin 75 MG TAKE 1 CAPSULE BY MOUTH TWICE DAILY Oral for 90 Active Medrol 4 MG as directed Orally 07/12/2021 Active Diclofenac Sodium 75 MG Oral for 45 Active SOCIAL HISTORY Tobacco Use: Social History Observation Description Date Details (start date - stop date) Current Smoker NA - NA Sex Assigned At : Social History Observation Description Sex Assigned At Unknown Tobacco Use/Smoking Question Answer Notes Are you a current smoker How often do you smoke cigarettes? every day Are you interested in quitting? 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 She has smoked cigarettes the last five years. She denies alcohol or illicit drug abuse. 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 She has smoked cigarettes the last five years. She denies alcohol or illicit drug abuse. 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 She has smoked cigarettes the last five years. She denies alcohol or illicit drug abuse. 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 She has smoked cigarettes the last five years. She denies alcohol or illicit drug abuse. 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 She has smoked cigarettes the last five years. She denies alcohol or illicit drug abuse. 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 She has smoked cigarettes the last five years. She denies alcohol or illicit drug abuse. 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 She has smoked cigarettes the last five years. She denies alcohol or illicit drug abuse. 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 She has smoked cigarettes the last five years. She denies alcohol or illicit drug abuse. 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 She has smoked cigarettes the last five years. She denies alcohol or illicit drug abuse. 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 She has smoked cigarettes the last five years. She denies alcohol or illicit drug abuse. 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 She has smoked cigarettes the last five years. She denies alcohol or illicit drug abuse. 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 She has smoked cigarettes the last five years. She denies alcohol or illicit drug abuse. 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 She has smoked cigarettes the last five years. She denies alcohol or illicit drug abuse. 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 She has smoked cigarettes the last five years. She denies alcohol or illicit drug abuse. 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 She has smoked cigarettes the last five years. She denies alcohol or illicit drug abuse. 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 She has smoked cigarettes the last five years. She denies alcohol or illicit drug abuse. 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 She has smoked cigarettes the last five years. She denies alcohol or illicit drug abuse. 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 She has smoked cigarettes the last five years. She denies alcohol or illicit drug abuse. 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 She has smoked cigarettes the last five years. She denies alcohol or illicit drug abuse. 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 She has smoked cigarettes the last five years. She denies alcohol or illicit drug abuse. 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 She has smoked cigarettes the last five years. She denies alcohol or illicit drug abuse. 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 She has smoked cigarettes the last five years. She denies alcohol or illicit drug abuse. 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 She has smoked cigarettes the last five years. She denies alcohol or illicit drug abuse. 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 She has smoked cigarettes the last five years. She denies alcohol or illicit drug abuse. 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 She has smoked cigarettes the last five years. She denies alcohol or illicit drug abuse. 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 She has smoked cigarettes the last five years. She denies alcohol or illicit drug abuse. 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 She has smoked cigarettes the last five years. She denies alcohol or illicit drug abuse. 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 She has smoked cigarettes the last five years. She denies alcohol or illicit drug abuse. 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 She has smoked cigarettes the last five years. She denies alcohol or illicit drug abuse. 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 She has smoked cigarettes the last five years. She denies alcohol or illicit drug abuse. 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 She has smoked cigarettes the last five years. She denies alcohol or illicit drug abuse. 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 She has smoked cigarettes the last five years. She denies alcohol or illicit drug abuse. 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 She has smoked cigarettes the last five years. She denies alcohol or illicit drug abuse. 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 She has smoked cigarettes the last five years. She denies alcohol or illicit drug abuse. 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 She has smoked cigarettes the last five years. She denies alcohol or illicit drug abuse. 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 She has smoked cigarettes the last five years. She denies alcohol or illicit drug abuse. 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 She smokes cigarettes. She denies alcohol or illicit drug abuse. 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 She smokes cigarettes. She denies alcohol or illicit drug abuse. 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 She smokes cigarettes. She denies alcohol or illicit drug abuse. 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 She smokes cigarettes. She denies alcohol or illicit drug abuse. 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 She smokes cigarettes. She denies alcohol or illicit drug abuse. PROBLEMS Problem Type ICD Code Onset Dates Problem Status W/U Status Risk SNOMED Code Notes Problem Morbid (severe) obesity due to excess calories (E66.01) Active confirmed Morbid obesity (disorder) (902159643) Problem Fear of injections and transfusions (F40.231) Active confirmed Fear of medical treatment (330109538) Problem Bilateral primary osteoarthritis of knee (M17.0) Active confirmed Osteoarthritis of knee (076677345) Problem Unspecified osteoarthritis, unspecified site (M19.90) Active confirmed Osteoarthritis (373136792) Problem Pain in unspecified wrist (M25.539) Active confirmed Pain in wrist (41393894) Problem Pain in unspecified knee (M25.569) Active confirmed Pain of knee re gion (finding) (7164058266) Problem Spondylolisthesis, lumbar region (M43.16) Active confirmed Acquired spondylolisthesis (277263104) Problem Spondylosis without myelopathy or radiculopathy, lumbar region (M47.816) Active confirmed Lumbosacral spondylosis without myelopathy (03341884) Problem Spondylosis without myelopathy or radiculopathy, lumbosacral region (M47.817) Active confirmed Lumbosacral spondylosis without myelopathy (disorder) (84087956) Problem Spinal stenosis, cervical region (M48.02) Active confirmed Spinal stenosis in cervical region (85746010) Problem Intervertebral disc disorders with radiculopathy, lumbar region (M51.16) Active confirmed Radiculopathy d ue to lumbar intervertebral disc disorder (656400295061653) Problem Other intervertebral disc degeneration, lumbar region (M51.36) Active confirmed Degeneration of lumbar intervertebral disc (92115676) Problem Radiculopathy, cervical region (M54.12) Active confirmed Cervical radiculopathy (01617781) Problem Radiculopathy, cervicothoracic region (M54.13) Active confirmed Cervical radiculopathy (14061637) Problem Radiculopathy, lumbar region (M54.16) Active confirmed Lumbar radiculopathy (246546710) Problem Osseous stenosis of neural canal of lumbar region (M99.33) Active confirmed Spinal stenosis of lumbar region (95994618) Problem Osseous stenosis of neural canal of lower extremity (M99.36) Active confirmed Problem Intervertebral disc stenosis of neural canal of lumbar region (M99.53) Active confirmed Spinal stenosis of lumbar region (72411224) Problem Osseous and subluxation stenosis of intervertebral foramina of lumbar region (M99.63) Active confirmed Spinal steno sis of lumbar region (14682099) Problem halfway (current) use of opiate analgesic (Z79.891) Active confirmed High risk drug monitoring status (344478680) Problem Carpal tunnel syndrome, bilateral upper limbs (G56.03) Active confirmed Carpal tunnel syndrome (91809197) VITAL SIGNS Heart Rate 83 /min 03/04/2024 Respiratory Rate 18 /min 03/04/2024 Blood pressure diastolic 82 mm Hg 03/04/2024 Oximetry 99 % 02/05/2024 Post procedure wfidgg=032/91,60,18,99%. Discharged home per ambulatory, in no acute distress. Height 5 ft 5 in in 03/04/2024 Blood pressure systolic 151 mm Hg 03/04/2024 Weight 315 lbs 03/04/2024 BMI 52.41 kg/m2 03/04/2024 Encounters Encounter Location Date Provider Diagnosis [address] [place] [address] 02/05/2024 Timmy Salgado Spondylosis without myelopathy or radiculopathy, lumbar region M47.816 and Spondylosis without myelopathy or radiculopathy, lumbosacral region M47.817 [facility] [place] [address] [facility] [place] [address] 02/06/2024 Timmy Salgado [facility] [address] [place] [address] [place] [address] 02/28/2024 Timmy Salgado Spondylosis without myelopathy or [...] region M54.12 and Radiculopathy, cervicothoracic region M54.13 [facility] [address] [place] [address] 03/04/2024 Timmy Salgado Bilateral primary osteoarthritis of knee M17.0 [facility] [address] [place] [address] 03/19/2024 Timmy Salgado Spondylosis without myelopathy or [...] Notes Treatment Clinical Notes Section Notes 02/28/2024 Bilateral primary osteoarthritis of knee (ICD-10 [...] agreeable to proceeding at this time. 02/28/2024 Spondylosis without myelopathy or radiculopathy, lumbar region (ICD-10 - M47.816) 02/05/2024 Spondylosis without myelopathy or radiculopathy, lumbar region (ICD-10 - M47.816) 02/05/2024 Spondylosis without myelopathy or radiculopathy, lumbosacral region (ICD-10 - M47.817) 03/04/2024 Bilateral primary osteoarthritis of knee (ICD-10 - M17.0) 03/19/2024 Spondylosis without myelopathy or radiculopathy, lumbar region (ICD-10 - M47.816) 02/28/2024 Radiculopathy, lumbar region (ICD-10 - M54.16) 03/19/2024 Bilateral primary osteoarthritis of knee (ICD-10 - M17.0) 02/28/2024 Spondylolisthesis, lumbar region (ICD-10 - M43.16) 03/19/2024 Radiculopathy, lumbar region (ICD-10 - M54.16) 02/28/2024 Intervertebral disc stenosis of neural canal of lumbar region (ICD-10 - M99.53) 03/19/2024 Spondylolisthesis, lumbar region (ICD-10 - M43.16) 03/19/2024 Intervertebral disc stenosis of neural canal of lumbar region (ICD-10 - M99.53) 02/28/2024 Osseous stenosis of neural canal of lumbar region (ICD-10 - M99.33) 02/28/2024 Spondylosis without myelopathy or radiculopathy, lumbosacral region (ICD-10 - M47.817) 03/19/2024 Osseous stenosis of neural canal of lumbar region (ICD-10 - M99.33) 02/28/2024 Fear of injections and transfusions (ICD-10 - F40.231) 03/19/2024 Spondylosis without myelopathy or radiculopathy, lumbosacral region (ICD-10 - M47.817) 02/28/2024 Radiculopathy, cervical region (ICD-10 - M54.12) The patient was instructed to notify the office after imaging has been obtained so it can be reviewed and treatment plan formulated moving forward. Patient verbalized understanding and agrees with current plan. 03/19/2024 Fear of injections and transfusions (ICD-10 - F40.231) 02/28/2024 Radiculopathy, cervicothoracic region (ICD-10 - M54.13) 03/19/2024 Radiculopathy, cervical region (ICD-10 - M54.12) 03/19/2024 Radiculopathy, cervicothoracic region (ICD-10 - M54.13) 02/05/2024 Other The patient voiced understanding of [...] for infection: Implements aseptic technique, protects from cross-contaminati on, performs skin preparations. Pain/Discomfort: Patient verbalizes acceptable level of pain relief prior to discharge and the ability to engage in desired activity. I HAVE REVIEWED THE PATIENT'S MEDICATION LIST AND HAVE RECONCILED THE ABOVE MEDICATIONS. PATIENT GOALS AND SAFETY CONCERNS HAVE BEEN ADDRESSED. RN initials PRADIP 02/28/2024 Other The above-named patient was evaluated [...] Medical Decision Makin minutes PLAN OF TREATMENT Pending Test Test Name Order Date X ray : Knees, bilateral, A-P standing 0 07/27/2020 MRI : Cervical Spine without Contrast (7 [id number]) 02/28/2024 MRI : Lumbar Spine without contrast (721 48) 07/23/2020 xray cervical spine 02/28/2024 Insurance Providers Payer Name Payer Address Payer Phone Subscriber Number Group Number Insured Name Patient Relationship to Insured Coverage Start Date Coverage End Date [employer] MEDICARE COMPLETE [address] [address] [place] [address] [id number] BALBINA MULTANI Self - patient is the insured Medicaid [place] [address] [place] [address] [id number] BALBINA MULTANI Self - patient is the insured MEDICAL (GENERAL) HISTORY Medical History History ICD Code Congestive heart failure COVID-19 Anxiety Hypertension Depression Sleep apnea Surgical History Surgery Date(Month/Year)
--- OUTSIDE RECORDS SUMMARY | 2025-02-03 18:53 | XMS_ITS | Clinical Summary ---
Author Organization [facility] Address [address] [place] [address] Care Team Providers Care Structural Mill Supervisor Name Role Phone Paulie Ha MD Unavailable [phone] Non-Staff, Provider Primary Care Provider Michael moore Allergies Active Allergy Reactions Criticality Noted Date Comments Ashwin Inhibitors Cough 11/18/2018 Latex Rash Low 04/05/2020 Rubber gloves with power in them give her a rash on her hands. Says area of her body that touch elastic turn red, Says under her breast where bra touches turns red and she has to constantly put neosporin on there. Tape Rash Low 04/05/2020 Use paper tape. Also says she bruises easily when IV started. Tramadol Itching,Nausea and Vomiting Low 10/27/2019 Itching Other reaction(s): nausea and vomiting Medications diclofenac EC 75 MG tablet Take 1 tablet (75 mg total) by mouth 2 (two) times daily. PRN w/ food 20 tablet 9 Active tiZANidine (ZANAFLEX) 2 MG tablet 4 Active traMADol HCl 100 MG Tab TAKE 1 TABLET BY MOUTH DAILY NEEDED FOR SEVERE PAIN 4 Active rosuvastatin (CRESTOR) 20 MG tablet Take 1 tablet (20 mg total) by mouth daily. Active pregabalin (LYRICA) 75 MG capsule TAKE 1 CAPSULE BY MOUTH TWICE DAILY Oral for 90 4 Active metoprolol tartrate (LOPRESSOR) 50 MG tablet Take 1 tablet (50 mg total) by mouth 2 (two) times daily. Active methocarbamol (ROBAXIN) 750 MG Tab Take 1 tablet (750 mg total) by mouth 3 (three) times daily as needed. FOR PAIN Active meloxicam (MOBIC) 15 MG tablet Take 1 tablet (15 mg total) by mouth daily. Active losartan (COZAAR) 25 MG tablet Oral for 90 Active lidocaine (XYLOCAINE) 5 % ointment APPLY SMALL AMOUNT TOPICALLY TO THE AFFECTED AREA TWICE DAILY NEEDED FOR PAIN 4 Active ipratropium-al buterol (DUONEB) 0.5-2.5 (3) MG/3ML Solution ipratropium 0.5 mg-albuterol 3 mg (2.5 mg base)/3 mL nebulization soln Active hydroCHLOROthi azide (HYDRODIURIL) 50 MG tablet daily. Active fexofenadine (GUY) 180 MG tablet TAKE 1 TABLET BY MOUTH ONCE DAILY NEEDED FOR ALLERGIES Oral for 90 Active famotidine (PEPCID) 20 MG tablet 4 Active erythromycin (ROMYCIN) 5 MG/GM (0.5%) ophthalmic ointment APPLY THIN LAYER IN LEFT EYE THREE TIMES DAILY Active amLODIPine (NORVASC) 5 MG tablet Take 1 tablet (5 mg total) by mouth daily. Active FLUoxetine (PROZAC) 10 MG capsule Oral for 90 Active methylPREDNISo RONAK jacobo (MEDROL DOSEPAK) 4 MG tabletIndicati ons:Carpal tunnel syndrome on right,Carpal tunnel syndrome on left Take 1 tablet (4 mg total) by mouth see administration instructions. Follow package taper directions 1 each 5 Active albuterol sulfate HFA 108 (90 Base) MCG/ACT inhaler Inhale 2 puffs into the lungs 4 (four) times daily. 18 g 5 Active Active Problems No known active problems Encounters Date Type Department Care Team Description 12/19/2024 8:13 PM CDT - 12/19/2024 10:14 PM CDT Emergency [facility] [place] [address] Janet Boss, CARPENTRY SPECIALIST Flu Like Symptoms Discharge Disposition: Home or Self Care (Routine Discharge) 12/19/2024 Travel from Last 3 Months Family History Medical History Relation Comments Asthma Brother Diabetes Brother Hypertension Brother Stroke Brother 2 brothers had a stroke Cancer Father prostate cancer. Hypertension Father Diabetes Mother Hypertension Mother Diabetes Sister Hypertension Sister Stroke Son 1 Relation Status Comments Brother Other Daughter Alive Father (Age 98) after his , Mother (Age 78) of brain aneurysm Sister Other patient is young est sibling Son 1 Alive Son 2 Alive Son 3 Alive Social History Tobacco Use Types Packs/Day Years Used Date Smoking Tobacco: Some Days Cigarettes 1 25 Smokeless Tobacco: Never Tobacco Cessation:Ready to Q uit: Yes; Counseling Given: Yes Comments:now down to 1/2 ppd (8 cigarettes a day), as of 04/20/2020 is trying to quit Alcohol Use Standard Drinks/Week Comments No 0 (1 standard drink = 0.6 oz pur e alcohol) AUDIT-C Answer Date Recorded Frequency of Alcohol Consumption Never 11/18/2018 Average Number of Drinks Not on file 019 Frequency of Binge Drinking Not on file 11/04 PHQ-2 Answer Date Recorded Patient Health Questionnaire-2 Score 0 05/08/2024 Comments No Sex and Gender Information Value Date Recorded Sex Assigned at Not on file Legal Sex Female 6:36 PM CDT Gender Identity Not on file Sexual Orientation Not on file Last Filed Vital Signs Vital Sign Reading Time Taken Comments Blood Pressure 151/87 12/19/2024 10:07 PM CDT Pulse 71 12/19/2024 10:07 PM CDT Temperature 36.7 C (98.1 F) 12/19/2024 8:12 PM CDT Respiratory Rate 18 12/19/2024 8:12 PM CDT Oxygen Saturation 98% 12/19/2024 10:07 PM CDT Inhaled Oxygen Concentration - - Weight 138.8 kg (306 lb) 12/19/2024 8:12 PM CDT Height 165.1 cm (5' 5) 12/19/2024 8:12 PM CDT Body Mass Index 50.92 12/19/2024 8:12 PM CDT Plan of Treatment Health Maintenance Due Date Last Done Comments Cervical Cancer Screening Pa p Smear (Age 30 to 64) Every 3 Years 1963 Colorectal Cancer Screening Colonoscopy (10 Years) 1963 Annual Physical 09/08/1966 Hepatitis C 09/08/1981 Pneumococcal Vaccine: 50+ Years (1 of 2 - PCV) 09/08/1982 Cervical Cancer Screening Pa p with HPV Testing (Age 30 to 64) Every 5 Years 09/08/1993 Cervical Cancer Screening wi th HPV 09/08/1993 Zoster Vaccines (1 of 2) 09/08/2013 Lung Cancer Screening 11/19/2022 11/19/2021 , 07/10/2019, 11/06/2016 RSV Immunization or 60+ Years (1 - Risk 60-74 years 1-dose series) 2023 COVID-19 Vaccine (3 - 2024-2 6 season) 2025 03/24/2022, 10/13/2021 Mammogram Screening 05/22/2025 05/22/2023 DTaP, Tdap and Td Vaccines ( 2 - Td or Tdap) 12/21/2031 12/20/2021 PHQ-2 (Physician [place]) Completed 05/08/2024 Meningococcal B Vaccine Aged Out No l onger eligible based on patient's age to complete this topic Meningococcal Vaccine Aged Out No mable yvonne eligible based on patient's age to complete this topic RSV Immunizations Under 20 Months Aged Out No longer eligible b ased on patient's age to complete this topic Procedures Procedure Name Priority Date/Time Associated Diagnosis Comments XR CHEST PORTABLE STAT 12/19/2024 8:2 7 PM CDT INFLUENZA A & B STAT 12/19/2024 8:23 PM CDT CORONAVIRUS (COVID 19) STAT 12/19/2024 8:23 PM CDT from Last 3 Months Results * XR CHEST PORTABLE (12/19/2024 8:27 PM CDT) Anatomical Region Laterality Modality Chest Radiographic Gloria ging 12/19/2024 8:37 PM CDT Impressions 12/19/2024 8:40 PM CDT Impression: No acute findings. Referred By: Interpreted By: Philip Johnson MD, 12/19/2024 8:37 PM Narrative 12/19/2024 8:40 PM CDT [address] [address] Examination: Chest 1 view portable History: Cough, shortness of breath DATE/TIME: 12/19/2024 8:16 PM Comparison: 03/14/2024 Technique: AP upright portable view of the chest was obtained. Findings: Heart size, mediastinal contours and pulmonary vasculature are within normal limits. No pulmonary consolidation, pleural effusion or pneumothorax. No acute osseous abnormality. Procedure Note Philip Johnson MD - 12/19/2024 [place] [address] Examination: Chest 1 view portable History: Cough, shortness of breath DATE/TIME: 12/19/2024 8:16 PM Comparison: 03/14/2024 Technique: AP upright portable view of the chest was obtained. Findings: Heart size, mediastinal contours and pulmonary vasculature arewithin normal limits. No pulmonary consolidation, pleural effusion orpneumothorax. No acute osseous abnormality. Impression: No acute findings. Referred By: Interpreted By: Philip Johnson MD, 12/19/2024 8:37 PM Janet Boss CARPENTRY SPECIALIST GENERAL IMAGING Final Resul t * CORONAVIRUS (COVID 19) (12/19/2024 8:23 PM CDT) CORONAVIRUS SARS COV 2 RNA NEGATIVE NEGATIVE 12/19/2024 9:52 PM CDT [facility] Comment: NEGATIVE RESULTS DO NOT RULE OUT COVID 19 AND SHOULD NOT BE USED THE SOLE BASIS FOR TREATMENT OR PATIENT MANAGEMENT DECISIONS, INCLUDING INFECTION CONTROL DECISIONS. NEGATIVE RESULTS SHOULD BE CONSIDERED IN THE CONTEXT OF A PATIENT'S RECENT EXPOSURES, HISTORY AND THE PRESENCE OF CLINICAL SIGNS AND SYMPTOMS CONSISTENT WITH COVID 19. THE ID NOW COVID-19 2.0 TEST HAS BEEN AUTHORIZED BY THE FDA UNDER EAU FOR USE BY AUTHORIZED LABORATORIES. PERFORMED BY NUCLEIC ACID AMPLIFICATION FOR MOLECULAR QUALITATIVE DETECTION OF SARS-COV-2. SPECIMEN TYPE NASAL 12/19/2024 8:23 PM CDT [facility] NASAL STRUCTURE / Unknown 12/19/2024 8:23 PM CDT Janet oBss [facility] MICROBIOLOGY [facility]AL [facility] Final Result Performing Organization Address City/[facility]/ZIP Co de Phone Number [facility] [address] [place] [id number], [place] [phone] * INFLUENZA A & B (12/19/2024 8:23 PM CDT) SPECIMEN TYPE NASAL 12/19/2024 8:26 PM CDT [facility] INFLUENZA A NEGATIVE NEGATIVE 12/19/2024 9:52 PM CDT [facility] INFLUENZA B NEGATIVE NEGATIVE 12/19/2024 9:52 PM CDT [facility] Comment: Interpretation: Negative for Influenza A and B. A negative result does not exclude influenza virus infection. If influenza is circulating in your community, a diagnosis of influenza should be considered based on a patient's clinical presentation and empiric antiviral treatment should be considered, if indicated. If more conclusive testing is needed for hospitalized inpatients, follow-up confirmatory testing with RT-PCR requires a separate order. NASOPHARYNGEAL SWAB / Unknown 12/19/2024 8:23 PM CDT Janet Boss [facility] MICROBIOLOGY - GENERAL [facility] Final Result Performing Organization Address City/[facility]/ZIP Co de Phone Number [facility] [address] [place] [id number], [place] [phone] from Last 3 Months Insurance [facility] MEDIC[facility] Advance Directives Documents on File Type Date Recorded Patient [employer] Expl anation Legal Documents 02/20/2014 SLEGAL Care Teams Structural Mill Supervisor Relationship Specialty Start Date End Date Non-Staff, Provider PCP - General UNKNOWN PHYSICIAN SPECIALTY 08/31/23 Paulie Ha MD CARDIOVASCULAR DISEASE 04/05/20
[2025-02-03 19:00] LABS: Troponin I < 0.012 ng/mL (0.000-0.034)
[2025-02-03 19:14] LABS: Influenza A QL RT-PCR Negative (Negative); Influenza B QL RT-PCR Negative (Negative); RSV RNA, RT-PCR Negative (Negative); SARS-CoV-2 RNA PCR Negative (Negative)
[2025-02-03] MEDS: DOXYCYCLINE HYCLATE 100 MG TABLET PO (19:22)
[2025-02-03 20:34] LABS: NT Pro B Type Natriuretic Pept 120 pg/mL (19.9-100)
== END 2025-02-03 19:40 | disposition home or self-care (01) ==
PROVIDERS: Emergency Medicine; Physician Assistant; Emergency Provider Student in an Organized Health Care Education/Training Program; PCP Registered Nurse
DX: J44.1 Chronic obstructive pulmonary disease with (acute) exacerbation (principal); J18.9 Pneumonia, unspecified organism; I10 Essential (primary) hypertension; F17.210 Nicotine dependence, cigarettes, uncomplicated; Z20.822 Contact with and (suspected) exposure to COVID-19
CPT/HCPCS: 36415; 71046; 80053; 83690; 83880; 84484; 85025; 85610; 85730; 87637; 93005; 99284; A9270; J7512